=== PATIENT | female | born 1955 | race Caucasian/White ===

== ENCOUNTER 2016-10-15 12:55 | Emergency (ER) | payer OTHER ==
--- NOTE | 2016-10-15 13:36 | RAD ---
EXAMINATION: ANKLE-RIGHT 3 VIEW CLINICAL INDICATION: Twisted right ankle today. Lateral ankle pain. COMPARISON:None FINDINGS: There is an oblique fracture of the distal fibular metaphysis extending posterior superior to anterior inferior. Mild displacement is noted at the fracture site. Slight comminution is also suggested. There is a vertical cortical irregularity involving the medial malleolus. This is of uncertain age but appear to reflect a subacute chip fracture. The tibiotalar joint space relationship is maintained. Avulsive irregularities adjacent to the distal fibula are noted. The dome of the talus is intact. IMPRESSION: 1. Oblique mildly comminuted fracture distal right fibula/lateral malleolus. 2. Apparent vertical chip fracture which may be subacute involving the medial malleolus at the metaphysis. 3. The tibiotalar joint space is maintained currently.
== END 2016-10-15 14:14 | disposition home or self-care (01) ==
LOC: ED 12:55
DX: S82.491A Other fracture of shaft of right fibula, initial encounter for closed fracture (principal); W00.0XXA Fall on same level due to ice and snow, initial encounter; E66.9 Obesity, unspecified; E03.9 Hypothyroidism, unspecified; Z85.9 Personal history of malignant neoplasm, unspecified; Z79.899 Other long term (current) drug therapy; Z88.2 Allergy status to sulfonamides; Z88.8 Allergy status to other drugs, medicaments and biological substances

== ENCOUNTER 2016-10-26 11:28 | Day surgery (SDC) | payer OTHER ==
--- NOTE | 2016-10-25 13:09 | HP ---
DATE OF CLINIC: 10/18/16 MILTON FLORES. : 1955 PLANNED PROCEDURE: Right distal fibula open reduction internal fixation DATE OF PROCEDURE: October 26, 2016 SURGEON: Pilo Lawrence M.D. PCP: Dr. Allan Oden REFERRED HERE [facility]. HISTORY OF PRESENT ILLNESS Milton Flores is a 60 year old female. * Medication list reviewed with patient allergy list reviewed with patient. * Has not tried NSAIDS * Has not tried Physical Therapy * Has not tried Injections 60-year-old female here for initial evaluation of a right ankle injury that she sustained on 10/15/16 when she slipped and fell on ice in front of her garage. She had immediate pain, inability to weightbear. She presented to the ER when symptoms persisted. Evaluation included radiographs that are available for my review demonstrating a Gomez B distal fibular fracture. She presents today for discussion of additional orthopedic management options. She denies any specific prior ankle problems. She is using ibuprofen. She does have a history of Fibromyalgia and hypothyroidism. She is a non-smoker. CURRENT MEDICATION * Synthroid 137 MCG Tablet 1 once a day 0 days, 0 refills PAST MEDICAL/SURGICAL HISTORY Reported: Medical: Thyroid Disorder. Surgical / Procedural: Prior surgery 2 feet surgeries , lap band 03/2013. SOCIAL HISTORY Behavioral: Caffeine use. Not a current smoker and not chewing tobacco. Quit smoking stopped smoking in 2002 after smoking 1 pack a day for 30 year. Smoking status: Former smoker. Alcohol: Alcohol 2-3 times a year and alcohol use. Drug Use: Not using drugs. Work: Occupation area client. ALLERGIES * Augmentin Reaction: Tymentin * Penicillins * Sulfa Drugs No reaction to anesthetics. REVIEW OF SYSTEMS Systemic: No fever and no recent weight change. Head: No head symptoms. Cardiovascular: No cardiovascular symptoms. Pulmonary: No pulmonary symptoms. Gastrointestinal: No gastrointestinal symptoms. Psychological: No psychological symptoms. Skin: No skin lesions and no rash. PHYSICAL FINDINGS * Vitals taken 10/18/2016 11:23 am Height and weight per patient. Unable to stand very well. BP-Sitting L 134/75 mmHg 100 - 120/56 - 80 BP Cuff Size Regular Pulse Rate-Sitting 77 bpm 50 - 100 Temp-Oral 97.2 F 96 - 101 Height 66.75 in 59 - 69 Weight 267 lbs 98 - 183 Body Mass Index 42.1 kg/m2 Body Surface Area 2.28 m2 Pain Level 3 Ears, Nose, Throat: * ENT: normal. Lungs: * Clear to auscultation. Cardiovascular: Heart Rate and Rhythm: * Normal. Abdomen: * Normal. Neurological: Motor: * Dominant Hand = Right Hand. Patient is an obese female in no acute distress, normal-appearing mood and affect. Evaluation of the right lower extremity after removal of the splint shows moderate swelling about the ankle, lateral greater than medial. She has some edema into the foot. She is tender reproducibly over the distal fibula as well as over the anteromedial ankle. NT posteriorly. Achilles is intact. Mid-foot is NT. Distal neurovascular exam is grossly intact and symmetric. She is NT in the pretibial area. Calf is soft and NT. Cursory evaluation of the knee shows non-irritable full motion. Hip rotation is non-irritable. Contralateral foot and ankle exam is normal. TESTS X-rays from 10/15/16 are reviewed and show a mildly displaced Gomez B distal fibular fracture with slight medial clear space widening. She does have posterior talar beaking. TESTS * Test: CBC WITH DIFF Report Date: 10/18/2016 WBC 7.6 10*3/mL MCV 94.2 fL RBC 3.97 10*6/uL Low NEUTROPHILS 52.2 % MCH 31.0 pg MCHC 32.9 g/dL Low RDW 12.3 % PLATELET COUNT 258 10*3/mL IMM NEUT % 0.3 % IMM NEUT # 0.0 10*3/mL MONOCYTES 7.1 % BASOPHIL 0.5 % EOSINOPHIL 3.8 % High HCT 37.4 % HGB 12.3 g/L LYMPHOCYTE 36.1 % ANC 4.0 10*3/mL * Test: COMPREHENSIVE METABOLIC PANEL Report Date: 10/18/2016 ALT/SGPT 12 U/L ALBUMIN 4.1 g/dL ALB/GLOB RATIO 1.5 BUN 10 mg/dL BUN/CREAT RATIO 14 CALCIUM 9.1 mg/dL GLUCOSE 80 mg/dL CREATININE 0.7 mg/dL SODIUM 139 meq/L POTASSIUM 3.9 meq/L CHLORIDE 103 meq/L CARBON DIOXIDE 28 meq/L ANION GAP 12 meq/L TOT PROTEIN 6.8 g/dL GLOBULIN 2.7 g/dL BILI,TOTAL 0.5 mg/dL AST/SGOT 18 U/L ALK PHOSPHATASE 50 U/L GFR 86 ASSESSMENT Displaced Gomez B distal fibular fracture. THERAPY * Patient fall risk screen positive. * Patient eligible for fall risk assessment. * Patient received fall risk assessment. PLAN * Disp fx of lateral malleolus of right fibula, init *[facility] sc[place] for Right ankle fracture requiring surgery to fix M25.571, S82.61XA, 60 days, 0 refills Right distal fibula open reduction internal fixation. I talked to the patient regarding my thoughts and findings. We discussed management options including nonoperative and operative. In my opinion, best management to improve chance of a good or excellent outcome would be operative reduction and internal fixation with a plate and screw construct laterally. We discussed this in some detail. Discussed with patient in detail the limitations, expectations as well as risks and possible complications of surgery including, but not limited to wound problems or infection, neurovascular injury, continued pain or dysfunction including the possibility of fracture nonunion, malunion or hardware failure that may require additional operative or non-operative treatment. Despite surgery she also understands the risks of posttraumatic arthritis. With surgery patient also realizes the perioperative risks including risks associated with anesthesia and would like to proceed. This is somewhat increased with her just given her morbid obesity. This will be scheduled accordingly for early next week. A full PAR conference was held, questions and concerns addressed and informed consent was obtained. Patient will be sent from my office for completion of the preoperative workup. In the meantime, continue non-weightbearing. I think it is reasonable to consider a knee scooter as well as a Cam walker. She realizes postoperatively she will be non-weightbearing for approximately 4 weeks. She will use some immobilization for probably about 8 weeks and some postop PT as well at that time. 30 minutes spent in face to face consultation with the patient today of which greater than 50% spent in counseling. CARE TEAM Allan Oden MD [facility] RAFI/sg
[~2016-10-26 11:28] MED LIST: CLINDAMYCIN 900 MG PREMIX 100 ML IV PRN; DEXAMETHASONE SOD PHOS 4 MG/1 ML VIAL ONE; FENTANYL 100 MCG/2 ML VIAL ONE; LIDOCAINE 2% (PRES FREE) 5 ML VIAL ONE; METOCLOPRAMIDE HCL 5 MG/ML 2ML VIAL ONE; MIDAZOLAM HCL 5 MG/5 ML VIAL ONE; ONDANSETRON 4 MG/2ML 2 ML VIAL ONE; PROPOFOL 40 ML IV ONE
[2016-10-26] MEDS ORDERED: LACTATED RINGERS 1,000 ML ONE ×2 (11:36→15:06)
[2016-10-26] MEDS ORDERED: IV START KIT ONE (11:36)
[2016-10-26] MEDS ORDERED: NERVE BLOCK PROCEDURAL TRAY 1 EACH ONE ×2 (14:06→14:53)
[2016-10-26] MEDS ORDERED: ROPIVACAINE 0.5% 30 ML VIAL ONE ×2 (14:06→14:53)
[2016-10-26] MEDS ORDERED: GLYCOPYRROLATE 0.2 MG/ML 1ML VIAL ONE (16:55)
[2016-10-26] MEDS ORDERED: KETAMINE HCL UD SYRINGE 100 MG/2 ML IV ONE (16:56)
[2016-10-26] MEDS ORDERED: CLINDAMYCIN 900 MG PREMIX 50 ML IV ONE (17:07)
[2016-10-26] MEDS ORDERED: ATROPINE SULFATE 0.4 MG/1 ML VIAL IV PRN (17:28)
[2016-10-26] MEDS ORDERED: HYDROMORPHONE HCL 1 MG/ML SYRINGE IV PRN ×2 (17:28→18:34)
[2016-10-26] MEDS ORDERED: ONDANSETRON 4 MG/2ML 2 ML VIAL IV PRN (17:28)
[2016-10-26] MEDS ORDERED: NALOXONE HCL 0.4 MG/ML VIAL IV PRN (17:28)
[2016-10-26] MEDS ORDERED: FENTANYL 100 MCG/2 ML VIAL IV PRN (17:28)
[2016-10-26] MEDS ORDERED: PROMETHAZINE HCL 25 MG/ML VIAL IM PRN (17:28)
[2016-10-26] MEDS ORDERED: LACTATED RINGERS 1,000 ML IV SCH ×2 (17:30→18:34)
--- NOTE | 2016-10-26 18:03 | RAD ---
Name: MILTON RODRIGUEZ Exam: C-arm fluoroscopy Comparison: None Clinical history: Right ankle ORIF Findings: 7 seconds of fluoroscopy was utilized for the procedure. 2 C-arm spot images are submitted. There is a compression plate along the lateral aspect of the distal fibula secured with at least 8 screws. There is a anterior to posterior screw traversing the fracture. Fracture fragments are in anatomic alignment. Joint spaces are within normal limits. Impression: Open reduction and internal fixation of a distal right fibular fracture. Please see operative report for further information.
--- NOTE | 2016-10-26 18:05 | PCMBPN ---
Brief Post Op Note: Date of Procedure: 10/26/16 Start Time: 1700 Preoperative Diagnosis: 1. right distal fibula fracture Postoperative Diagnosis: 1. Same Procedure: right distal fibula ORIF Surgeon: Pilo Lawrence MD Assist: Emanuel Hayden PA-C Anesthesia: Franco Olivas Findings: as above Condition: stable to PACU Complications: none IV Fluids: 1400 mLs of LR Urine Output: 0 mLs Estimated Blood Loss: 25 mLs Tourniquet Time: 40 min at 250 mm Hg Specimens: none Implants: [employer] distal fibula locking plate, 2.7mm locking screws distally and 3.5mm cortical screws proximally Drains: none Pilo Lawrence MD
[2016-10-26] MEDS ORDERED: DIPHENHYDRAMINE HCL 50 MG/1 ML VIAL IV PRN (18:34)
[2016-10-26] MEDS ORDERED: OXYCODONE HCL 5 MG TABLET PO PRN (18:34)
[2016-10-26] MEDS ORDERED: KETOROLAC TROMETHAMINE 30 MG/ML 1 ML VIAL IV PRN (18:34)
[2016-10-26] MEDS ORDERED: HYDROMORPHONE HCL 0.5 MG/0.5 ML SYRINGE IV PRN (18:58)
--- NOTE | 2016-10-26 18:59 | RAD ---
Name: MILTON RODRIGUEZ Exam: Right ankle Comparison: Preoperative exam Clinical history: Status post ORIF Findings: Single AP view of the postoperative right ankle is submitted. Bone density is normal. Ankle mortise is intact. There is been ORIF of the distal right fibular fracture. Fixation plate and screws are in normal position. There is a small avulsion fracture off of the medial malleolus. There is no other abnormality. Impression: 1. Normal postoperative AP appearance of the distal right fibular ORIF 2. Small stable infiltration fracture off the lateral margin of the medial malleolus 3. Please see operative report for further information.
[2016-10-26] MEDS ORDERED: OXYCODONE HCL 5 MG TABLET ONE (19:20)
[2016-10-27] MEDS ORDERED: ONDANSETRON 4 MG/2ML 2 ML VIAL IV PRN
--- NOTE | 2016-10-27 10:55 | OP ---
Key RODRIGUEZ : 1955 [id number] DATE OF PROCEDURE: October 26, 2016 PREOPERATIVE DIAGNOSIS: Right distal fibula fracture with unstable mortise. POSTOPERATIVE DIAGNOSIS: Right distal fibula fracture with unstable mortise. PROCEDURE PERFORMED: RIGHT DISTAL FIBULA OPEN REDUCTION INTERNAL FIXATION. SURGEON: Pilo Lawrence M.D. TRAFFIC WORKFORCE REPRESENTATIVE: Emanuel Hayden P.A.-C. ANESTHESIA: Franco Olivas C.R.N.Tavo. SPECIMENS: No material was sent to the laboratory. ESTIMATED BLOOD LOSS: 25 mL FLUIDS REPLACED: 1,400 mL of crystalloid. TOURNIQUET TIME: 40 minutes at 250 mmHg. IMPLANTS: [employer] distal fibular locking plate with 2.75 mm locking screws distally and 3.5 mm cortical screws proximally. DRAINS: None. INDICATIONS: This is a 60-year-old female with an unstable mortise after a lateral malleolus fracture. Exam and x-rays demonstrate instability. Risks, benefits and alternatives of open reduction internal fixation were discussed with the patient and she elected to proceed. Informed consent was obtained and documented in the chart and te patient was placed on the schedule the first available convenience. DESCRIPTION OF PROCEDURE: The patient was identified in the preoperative holding area where she was marked with an indelible marker by the operating surgeon. She was taken to the operating room where she was placed in the supine position on the operating room table. Spinal anesthesia was induced. Perioperative antibiotics were administered. A well padded pre-calibrated nonsterile tourniquet was placed on her right upper thigh. She was prepped and draped in the usual sterile fashion for surgery. An operative time out was performed and confirmed by all members of the operative team. A standard longitudinal incision was made over the distal portion of the fibula. Neurovascular structures were protected. Dissection was carried down and a subperiosteal dissection was performed. Hohmann retractors were placed and the fracture was identified. The fracture was displaced and irrigated, debrided removing all fracture callus. A provisional reduction was obtained using a lobster claw reduction forceps. There was comminution at this level and so no lag screw was appropriate. A distal fibula locking plate was brought onto the field and held in place while AP and lateral images were obtained confirming size and reduction. A single nonlocking screw was placed to suck the plate down to the bone distally and then a cluster of locking screws were placed distally and the nonlocking cortical screw was replaced with a locking screw. With the fracture held in a reduced position cortical screws were placed in the proximal portion of the plate obtaining stability of this plate in a bridging fashion with good bony apposition. Final images were obtained in the AP and lateral projections which confirmed our reduction in fixation. The wound was copiously irrigated with sterile saline. The periosteum was closed over the plate with #0 Vicryl. Subcutaneous tissues were closed with #2-0 Vicryl and the skin closed with Nylon. A sterile dressing of Xeroform, fluffs, web roll and an TYLOR bandage was applied and the patient was returned to a removable walking boot. The tourniquet was deflated and the drapes were removed. The patient was awakened from her anesthesia. She was transferred to a stretcher and taken postoperatively to the postanesthesia care unit in stable condition. There were no observed intraoperative complications during this procedure. Job [id number] Cc: [facility]
== END 2016-10-26 20:20 | disposition home or self-care (01) ==
LOC: SDC 11:28 → MS 19:51 → SDC 20:20
PROVIDERS: ATTEND Orthopaedic Surgery
PROC: 0QSJ04Z Reposition Right Fibula with Internal Fixation Device, Open Approach (ICD-10-PCS; principal; 2016-10-26)
DX: S82.61XA Displaced fracture of lateral malleolus of right fibula, initial encounter for closed fracture (principal); E07.9 Disorder of thyroid, unspecified; Z88.0 Allergy status to penicillin; Z88.1 Allergy status to other antibiotic agents; Z88.2 Allergy status to sulfonamides; Z87.891 Personal history of nicotine dependence; W00.0XXA Fall on same level due to ice and snow, initial encounter; Y92.015 Private garage of single-family (private) house as the place of occurrence of the external cause; M79.7 Fibromyalgia; E66.9 Obesity, unspecified; Z68.41 Body mass index [BMI] 40.0-44.9, adult; Z98.84 Bariatric surgery status
CPT/HCPCS: 27792; 73600 ×2; 76000; J3010; J1100; J2795 ×2; A9270; J2765; J2250; J2405; J7120 ×2